=== PATIENT | male | born 1925 | race Caucasian/White ===

== ENCOUNTER 2017-01-11 07:45 | Day surgery (SDC) | payer MEDICARE ==
[~2017-01-11] VITALS: Ht 165.1 cm; Wt 63.6 kg
[~2017-01-11 07:45] MED LIST: ASPI81TA82 PO; CARV6.25 PO; CLIN150 PO; PRAD75CA PO; ZOCO40TA PO
[2017-01-11 07:59] VITALS: BP 161/79; PULSE 99; RESP 20; TEMP 98.1; O2SAT 96
[2017-01-11] MEDS ORDERED: SIMV40TA PO (08:05)
[2017-01-11] MEDS ORDERED: LINA145C PO (08:05)
[2017-01-11] MEDS ORDERED: ASPI81CH CHEW (08:05)
[2017-01-11] MEDS ORDERED: TAMS0.4C4 PO (08:05)
[2017-01-11] MEDS ORDERED: PRED10 PO (08:05)
[2017-01-11] MEDS ORDERED: PRAD75CA PO (08:05)
[2017-01-11] MEDS ORDERED: CARV6.252 PO (08:05)
[2017-01-11] MEDS ORDERED: SODIUM CHLOR 0.9% 1000 ML IV SCH (08:15)
[2017-01-11] MEDS ORDERED: LIDOCAINE HCL 1% 20 ML VIAL ONE (10:41)
[2017-01-11] MEDS ORDERED: MIDAZOLAM HCL 2 MG/2 ML VIAL ONE (11:03)
[2017-01-11 11:45] VITALS: BP 103/63; PULSE 76; RESP 18; TEMP 98.5; O2SAT 96
[2017-01-11 12:00] VITALS: BP 96/60; PULSE 74; RESP 19; O2SAT 96
[2017-01-11 12:30] VITALS: BP 98/58; PULSE 73; RESP 18; O2SAT 96
--- NOTE | 2017-01-11 12:34 | RADRPT ---
EXAM DATE/TIME: 01/11/2017 11:05 [place] COMPARISON: No previous studies available for comparison. INDICATIONS : Liver mass SEDATION TIME: 15 minutes BIOPSY SITE: Liver MEDICATION(S): 1.) 1 mg midazolam (Versed) IV 2.) 50 mcg fentanyl (Sublimaze) IV DEVICE(S): 1.) 18 gauge Temno core biopsy needle MEDICAL HISTORY : None. SURGICAL HISTORY : Pacemaker. ENCOUNTER: Initial ACUITY: 1 day PAIN SCORE: 0/10 LOCATION: A total of one core specimen(s) were obtained and sent to the laboratory for pathologic evaluation. PROCEDURE: 1. CT guided liver biopsy. Prior to the procedure informed consent was obtained. Any appropriate prior imaging studies were rev iewed. Using automated exposure control and adjustment of the mA and/or kV according to patient size, radiat ion dose was kept as low as reasonably achievable to obtain optimal diagnostic quality images. DICOM format image data is available electronically for review and comparison. The site was prepped in a sterile fashion. Full sterile technique was used, including cap, mask, mynor rile gloves and gown and a large sterile sheet. Hand hygiene and 2% chlorhexidine and/or betadine/al cohol prep was utilized per protocol for cutaneous antisepsis. The skin and subcutaneous tissues wer e infiltrated with local anesthetic solution. With CT guidance the previously identified target was localized. Biopsy was performed using the presc ribed needle as above. Adequate hemostasis was obtained with compression at the puncture site. Follow-up CT scan reveals no hemorrhage. The patient tolerated the procedure well and there were no complications. The patient was returned to the Radiology Outpatient Unit in stable condition. CONCLUSION: Uncomplicated CT guided biopsy. Joshua Busby MD on January 11, 2017 at 12:32 Board Certified Radiologist. This report was verified electronically.
[2017-01-11 13:00] VITALS: BP 101/45; PULSE 77; RESP 18; O2SAT 98
--- NOTE | 2017-01-11 13:08 | PD.RAD ---
Post CT Procedure Prog Note Pre Procedure Diagnosis: (1) Liver mass Post Procedure Diagnosis: (1) Liver mass Procedure Date: Jan 11, 2017 Supervising Radiologist: Joshua Busby Estimated blood loss: none Anesthesia: Local, Conscious Sedation Plan of Activity Patient to Unit: ROPU Patient Condition: Good See PACS Report for procedural detail/treatment Biopsy Imaging Guidance: CT Side: Right Biopsy Procedure: Liver Specimen: Core Biopsy Joshua Busby MD Jan 11, 2017 13:08
[2017-01-11 13:30] VITALS: BP 102/54; PULSE 74; RESP 19; O2SAT 98
[2017-01-11] MEDS ORDERED: HYDROmorphone HCL 2 MG TAB PO PRN (15:00)
== END 2017-01-11 14:45 | disposition home or self-care (01) ==
LOC: HRAD 07:45 → HRIP 07:46 → HRAD 14:45
PROVIDERS: ATTEND Internal Medicine
DX: C78.7 Secondary malignant neoplasm of liver and intrahepatic bile duct (principal); I48.91 Unspecified atrial fibrillation; E78.5 Hyperlipidemia, unspecified; Z95.0 Presence of cardiac pacemaker; Z79.01 Long term (current) use of anticoagulants; Z79.82 Long term (current) use of aspirin; Z79.899 Other long term (current) drug therapy
CPT/HCPCS: 47000; 77012; 81235; 88307; 88341; 88342; 88360; 88377; 88381; J2250; J3010; J7030